=== PATIENT | female | born 1955 | race Caucasian/White ===

== ENCOUNTER 2016-06-22 07:35 | Day surgery (SDC) | payer BC, OTHER ==
--- NOTE | ~2016-06-22 | EGD ---
EGD REPORT [facility] [address] [id number] NAME: EULA LARA : 55 STATUS : REG [facility]#: [id number] AGE: 60 ADM/REG DATE : 06/22/16 MR#: [id number] REPORT SERV DATE: 06/22/16 DICTATED BY: JESSICA DRAPER DATE: 06/22/16 REPORT STATUS : Draft TRANSCRIBED BY: [employer] DATE: 06/22/16 Endoscopy Center Patient Name: Eula Lara Date of : 1955 Attending MD: JESSICA DARPER MD Procedure Date No Time: 06/22/2016 Procedure: Colonoscopy Indications: FH of Colon Cancer -distant relative, FH of Colonic Polyps - 1st degree relative Referring MD: LIZBETH SUH Medicines: as per anesthesia Complications: No immediate complications. Procedure: Pre-Anesthesia Assessment: - ASA Grade Assessment: III - A patient with severe systemic disease. After I obtained informed consent, the scope was passed under direct vision. Throughout the procedure, the patient's blood pressure, pulse, and oxygen saturations were monitored continuously. The PCF [id number] was introduced through the anus and advanced to the cecum, identified by appendiceal orifice and ileocecal valve. The colonoscopy was performed without difficulty. The patient tolerated the procedure. The quality of the bowel preparation was adequate to identify polyps. Findings: The perianal and digital rectal examinations were normal. Internal hemorrhoids were found during endoscopy and were mild. Impression: - Internal hemorrhoids. Recommendation: - Repeat colonoscopy in 5 years for surveillance. Procedure Code(s): --- Professional --- 43603, Colonoscopy, flexible, proximal to splenic flexure; diagnostic, with or without collection of specimen(s) by brushing or washing, with or without colon decompression (separate procedure) Diagnosis Code(s): --- Professional --- K64.8, Other hemorrhoids Z80.0, Family history of malignant neoplasm of digestive organs Z83.71, Family history of colonic polyps EGD REPORT [facility] [address] [address] NAME: EULA LARA : 55 STATUS : REG [facility] [place] PAT#: [id number] AGE: 60 ADM/REG DATE : 06/22/16 MR#: [id number] REPORT SERV DATE: 06/22/16 DICTATED BY: EJSSICA DRAPER. DATE: 06/22/16 REPORT STATUS : Draft TRANSCRIBED BY: [employer] DATE: 06/22/16 CPT copyright 2013 [employer]. All rights reserved. The codes documented in this report are preliminary and upon behavioral pediatrician review may be revised to meet current compliance requirements. JESSICA DRAPER MD 06/22/2016 9:15 AM This report has been signed electronically. Number of Addenda: 0 Note Initiated On: 06/22/2016 8:43 AM Scope Withdrawal Time 0 hours 8 minutes 47 seconds [address] [id number]
[~2016-06-22 07:35] MED LIST: ASA5GR PO; ASABAYER PO; CENTRUM PO; D.O.S.100 MG PO; DUEXIS 800-26.1 EACH PO; FISH OIL1200 MG PO; FISH-EPA1000 MG PO; FLAXSEED OIL PO; FLAXSEED OIL1000 MG PO; HYZAAR 100/25 T1 TAB PO; HYZAAR1 TAB PO; JANUVIA50 PO; KDUR10 PO; LAMICTAL10 PO; LAMICTAL200 MG PO; LIVALO1 MG PO; LIVALO2 MG PO; LOP25 PO; NORV5 PO; P5 PO; PRILO PO; WELCHOL 625 MG625 MG OR; WELLXL150 PO; X5 PO
== END 2016-06-22 23:59 | disposition home or self-care (01) ==
LOC: DMU 07:35
PROVIDERS: Internal Medicine Gastroenterology
PROC: 0DJD8ZZ Inspection of Lower Intestinal Tract, Via Natural or Artificial Opening Endoscopic (ICD-10-PCS; principal; 2016-06-22 08:30)
DX: K64.8 Other hemorrhoids (principal); K21.9 Gastro-esophageal reflux disease without esophagitis; I10 Essential (primary) hypertension; I48.91 Unspecified atrial fibrillation; E11.9 Type 2 diabetes mellitus without complications; G47.33 Obstructive sleep apnea (adult) (pediatric); M19.90 Unspecified osteoarthritis, unspecified site; F31.9 Bipolar disorder, unspecified; Z80.0 Family history of malignant neoplasm of digestive organs; Z86.73 Personal history of transient ischemic attack (TIA), and cerebral infarction without residual deficits; Z91.09 Other allergy status, other than to drugs and biological substances; Z79.82 Long term (current) use of aspirin; Z79.899 Other long term (current) drug therapy; Z90.49 Acquired absence of other specified parts of digestive tract; Z90.710 Acquired absence of both cervix and uterus; Z98.890 Other specified postprocedural states
CPT/HCPCS: 82962